=== PATIENT | female | born 1985 | race Hispanic/Latino ===

== ENCOUNTER 2019-10-27 08:36 | Outpatient (CLI) | payer OTHER ==
--- NOTE | 2019-10-27 10:25 | ULT ---
OB ULTRASOUND: HISTORY: anatomy. FINDINGS: A single live intrauterine gestation is seen with measurements corresponding to an estimated gestatio nal age of 20 weeks 0 days and an DARLENE of 03/15/2020. Estimated weight measures 324 g or 11 oz ( 35th percentile by Hadlock criteria). measurements are as follows: BPD: 4.57 cm (19 weeks 6 days) HC: 16.79 cm (19 weeks 4 days) AC: 15.06 cm (20 weeks 3 days) FL: 3.13 cm (19 weeks 6 days) heart rate measures 158 beats per minute. Placenta is anteriorly located without evidence of pl acenta previa. LUCY measures 14.3 cm. Three vessel cord, cord insertion, kidneys, bladder, stomach, four chambered heard, lateral arcadio tricles, cerebellum, spine, lips/nose and upper and lower extremities are visualized. No definite fet al anomalies are seen. Cervical length measures 3.5 cm. IMPRESSION: Single live intrauterine of 20 weeks' 0 days' estimated gestational age and estimated date of delivery of 03/15/2020. POS: ANTON
== END 2019-10-27 08:37 | disposition home or self-care (01) ==
LOC: BICULT 08:36
PROVIDERS: ATTEND Family Medicine
DX: O09.522 Supervision of elderly multigravida, second trimester (principal); Z3A.20 20 weeks gestation of pregnancy
CPT/HCPCS: 76805

== ENCOUNTER 2019-11-04 19:05 | Day surgery (SDC) | payer OTHER ==
[2019-11-04 19:46] VITALS: BP 144/74; TEMP 98.4; BMI 28.8
[2019-11-04] MEDS ORDERED: hydrALAZINE 20 MG/ML VIAL SLOW IVP PRN (19:53)
--- NOTE | 2019-11-04 20:23 | HP ---
TIME OF EVALUATION: 1940 hours to 1954 hours. LOCATION: Labor and Delivery Triage B. REASON FOR EVALUATION: Decreased movement at 21 weeks. This is a patient of Dr. Cox. HISTORY OF PRESENT ILLNESS: In brief, this is a 33-year-old G7, P5, SAB1 (2006) at 21 weeks and 1 day, here for decreased movement times "2 weeks." She denies leakage of fluid or vaginal bleeding or contractions. REVIEW OF SYSTEMS: Complete review of systems was checked and is otherwise negative unless specified in the HPI. PAST MEDICAL HISTORY: The patient states that she has had gestational diabetes history in the past and there is now some thought that she has pre-existing diabetes, but she is just on diet control at this time. ALLERGIES: NONE. PAST SURGICAL HISTORY: None. OB HISTORY: She has had vaginal deliveries and no C-sections. PHYSICAL EXAMINATION: Her blood pressure is 144/74, respirations are 18, pulse is 77, temperature is 98.4, O2 saturation is 100% on room air. On Doppler, the heart tones are in the 130s to 140s. After Doppler evaluation and about 20 minutes of observation, the patient states that she now feels the baby move. monitoring was not done as the patient is only 21 weeks. ASSESSMENT: This is a G7, P5, advanced maternal age patient at 33 years old, at 21 weeks with decreased movement, which is likely due to the gestational age. PLAN: 1. Reassurance given. 2. The patient's blood pressure is a little borderline, but based on the gestational age, this may represent chronic hypertension rather than -induced hypertension. For now, there is no intervention at this time, but I do recommend close outpatient followup. 3. No need for surveillance as she is only 21 weeks. 4. The patient is to follow up at the end of this week for continued blood pressure check and evaluation. Job ID: [id number]
== END 2019-11-04 20:25 | disposition home health service (06) ==
LOC: L&D/OP 19:05
PROVIDERS: ATTEND Family Medicine
DX: O36.8120 Decreased fetal movements, second trimester, not applicable or unspecified (principal); O09.522 Supervision of elderly multigravida, second trimester; Z3A.21 21 weeks gestation of pregnancy
CPT/HCPCS: 99282

== ENCOUNTER 2020-01-15 21:26 | Day surgery (SDC) | payer OTHER ==
[2020-01-15] MEDS ORDERED: hydrALAZINE 20 MG/ML VIAL SLOW IVP PRN (21:49)
--- NOTE | 2020-01-15 21:55 | PDOC.FPROB ---
FMR OB H&P: HPI - History of Present Illness Chief Complaint: Contractions Indentification: 34 year old at 31.4 wks History of Present Illness: 34 year old at 31.4 wks presents with contractions every 2-3 minutes for the last two hours. Patient states the pain is rated as a 3/10 but worsening in intensity. Patient states she had recent yeast infection and took pill today. She states that she has history of recurrent UTI's in for which she has had to take antibiotics and subsequently developed yeast infections. Additionally, patient has uncontrolled A2GDM on insulin. Patient states BG averages 150's. She did not have diabetes in previous pregnancies. Patient endorses good movement. She denies vaginal bleeding, vaginal discharge, LoF. 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 History: Denies history of STD's - Surgical History Sx History: Denies - Social History Social History: Denies alcohol, tobacco, or drug use FMR OB H&P: Medications - Current Home Medications: Medication Instructions Recorded Confirmed Type Fluconazole 01/15/20 History Insulin Aspart [Novolog Flexpen] 01/15/20 History Insulin Detemir [Levemir Flextouch] 01/15/20 History Fluconazole 150 mg PO ONE #1 tablet 01/16/20 Rx metroNIDAZOLE [Flagyl] 500 mg PO BID 7 Days #14 tab 01/16/20 Rx Allergies/Adverse Reactions: Allergies Allergy/AdvReac Type Severity Reaction Status Date / Time No Known Allergies Allergy Verified 01/15/20 22:11 FMR OB H&P: ROS - Review of Systems General: denies: fever/chills, weight/appetite/sleep changes Eyes: denies: vision changes, scotomas ENT: denies: nasal congestion, rhinorrhea, sore throat Cardiovascular: denies: chest pain, palpitation, edema Respiratory: denies: cough, congestion, shortness of breath Gastrointestinal: reports: abdominal pain. denies: nausea, vomiting Genitourinary (Female): reports: contractions. denies: dysuria, vaginal discharge, vaginal pain, vaginal bleeding Musculoskeletal: denies: pain, stiffness Neurologic: denies: numbness, syncope Integumentary: denies: itching, rash Psychological: denies: depression, anxiety FMR OB H&P: Vital Signs - Maternal Vital signs: BP 134/74 Pulse 85 Afebrile - Heart Tones Baseline: 130 Variability: moderate Acceleration: present Deceleration: absent [place] contractions every: q3-5, then q7-10 min FMR OB H&P: Physical Exam - Physical Exam General: NAD, awake, alert and oriented HEENT: MMM, grossly normal vision, grossly normal hearing Heart: RRR, pulses present General: CTAB, no respiratory distress Abdomen: soft, gravid, non-tender Musculoskeletal: pulses present, FROM in all four extremities Neurological: no tremor, no focal deficit Skin: no rash, capillary refill <2 seconds Lymphatic: no unusual bruising or bleeding, no purpura Psychiatric: intact recent and remote memory, good judgement and insight FMR OB H&P: A/P - Problem List (1) contractions Status: Acute Code(s): O47.9 - FALSE LABOR, UNSPECIFIED (2) GDM, class A2 Status: Acute Code(s): O24.419 - GESTATIONAL DIABETES MELLITUS IN , UNSP CONTROL Disposition: 34 year old at 31.4 wks contractions - q3-4 min contractions which spaced out during course of triage - Cat I strip - PO hydration - UA with 100 glucose and 20 ketones - VP3 positive for BV and michelle; GC/CT pending - FFN negative - SVE: closed/thick/high, posterior - Does not appear to be in PTL at this time - Sterile spec exam with copious amount of green, thick vaginal discharge Bacterial vaginosis - Noted on VP3 - Sent flagyl 500 mg BID x7 days to pharmacy Recurrent candidal vaginitis - Took PO fluconazole today - Will send 150 mg tablet of fluconazole to take in 72 hours - Advised to follow up with primary OB A2GDM - On insulin, uncontrolled per patient with average BG 150's fasting and PP - Patient needs to discuss titration of medication with primary OB Dispo: Patient not in PTL. D/c home with strict return precautions. Discussion: Date/Time: 01/15/20 6024 This H&P was discussed with Dr. Silvestre who agrees with the above documentation and plan. Signature: Valentina Nash, PGY-3 Addendum - Attending - Attending Attestation Date/Time: 01/16/20 0760 I personally evaluated the patient and discussed the management with Dr. Nash. I agree with the History, Examination, Assessment and Plan documented above.
[2020-01-15 22:10] VITALS: BP 134/74; TEMP 98; BMI 32.3
[2020-01-15 23:18] LABS: Bacteria/HPF None Seen HPF (None Seen); Bilirubin Negative (Negative); Blood, Urine Negative (Negative); Clarity Clear (Clear); Glucose, Urine (Dipstick) 100 mg/dL (Negative); Leukocyte Negative Leu/uL (Negative); Nitrite Negative (Negative); Protein, Urine (Dipstick) Negative (Neg-Trace); RBC/HPF 0-3 HPF (0-3); Squamous Epithelial 0-3 HPF (0-3); Urobilinogen Normal mg/dL (Less than 2); WBC/HPF 0-3 HPF (0-3)
[2020-01-15 23:20] LABS: Urine Culture Reflex No No
[2020-01-15 23:35] LABS: FFN Internal QC Analyzer PASS (PASS); Fetal Fibronectin Negative (Negative)
[2020-01-15 23:36] LABS: FFN Internal QC Cassette PASS (PASS)
[2020-01-17 23:03] LABS: Chlamydia by PCR Not Detected (NotDetected); GC by PCR Not Detected (NotDetected)
== END 2020-01-16 00:40 | disposition home or self-care (01) ==
LOC: L&D/OP 21:26
PROVIDERS: ATTEND Family Medicine
DX: O47.03 False labor before 37 completed weeks of gestation, third trimester (principal); O24.414 Gestational diabetes mellitus in pregnancy, insulin controlled; O23.593 Infection of other part of genital tract in pregnancy, third trimester; O98.813 Other maternal infectious and parasitic diseases complicating pregnancy, third trimester; B37.3 Candidiasis of vulva and vagina; Z3A.31 31 weeks gestation of pregnancy; Z79.4 Long term (current) use of insulin; Z79.899 Other long term (current) drug therapy
CPT/HCPCS: 51701; 81001; 82731; 87077; 87081; 87480; 87491; 87510; 87591; 87660; 99285

== ENCOUNTER 2020-01-28 14:32 | Outpatient (CLI) | payer OTHER ==
--- NOTE | 2020-01-28 15:19 | ULT ---
ULTRASOUND OBSTETRICAL COMPLETE: DATE: 01/28/2020 HISTORY: 34-year-old female with "O0 9.5-3, elderly multigravida in third trimester" " growth, LUCY, and umbilical artery Dopplers." FINDINGS: number: smith lie: Cephalic Maternal cervix: 4 cm. Closed. Placenta: Anterior right. No placenta previa. Amniotic fluid volume: LUCY = 13.5cm heart rate: 150 bpm anatomy not evaluated in detail biometry: Biparietal diameter (BPD): 8.5 cm 34 w 3 d Head circumference (HC): 31.1 cm 34 w 6 d Abdominal circumference (AC): 33.0 cm 37 w 0 d Femur length (FL): 6.7 cm 34 w 3 d Average ultrasound age (AUA): 35 w 2 d Estimated date of delivery (DARELNE): 03/01/2020 Estimated weight (EFW): 2756 g +/- 402 g Umbilical artery Doppler: At mid cord: Peak systolic velocity: 114 cm/s End diastolic velocity: 59 cm/s Resistive index: 0.48 S/D ratio: 1.9 At cord insertion: Peak systolic velocity: 149 cm/s End diastolic velocity: 65 cm/s Resistive index: 0.56 S/D ratio: 2.3 IMPRESSION: 1) Live 3rd trimester intrauterine gestation. 2) Estimated gestational age of 35 weeks, 2 days 3) cephalic lie. 4) 4 cm closed cervix. 5) umbilical artery Doppler values as above.
== END 2020-01-28 14:33 | disposition home or self-care (01) ==
LOC: BICULT 14:32
PROVIDERS: ATTEND Family Medicine
DX: O09.523 Supervision of elderly multigravida, third trimester (principal); Z3A.35 35 weeks gestation of pregnancy
CPT/HCPCS: 76815; 93975

== ENCOUNTER 2020-02-01 11:36 | Day surgery (SDC) | payer OTHER ==
[2020-02-01 12:30] VITALS: BMI 33.4
--- NOTE | 2020-02-01 13:34 | ULT ---
Obstetric sonogram limited Umbilical cord duplex exam Sonographic biophysical profile exam . HISTORY: Nonreactive nonstress test. FINDINGS: Single intrauterine gestation in cephalic presentation. Cervix is closed and 4.0 cm. Advanc ed age limits anatomic detail. Amniotic fluid index 14.8. Grade 3 placenta is anterior. Heart motion at 119 bpm. Good movement, tone, and breathing movements were demonstrated at sonography. Good color and spectral Doppler flow within the umbilical artery. Resistive index 0.56. Pulsatility i ndex 0.83. S/D ratio 2.3. IMPRESSION: Sonographic biophysical profile score 8/8. Normal umbilical Doppler exam.
== END 2020-02-01 14:05 | disposition home or self-care (01) ==
LOC: L&D/OP 11:36
PROVIDERS: ATTEND Family Medicine
DX: O47.9 False labor, unspecified (principal); Z3A.00 Weeks of gestation of pregnancy not specified
CPT/HCPCS: 36416; 59025; 76819; 93975; 99282

== ENCOUNTER 2020-02-14 18:00 | Inpatient (IN) | payer MEDICAID, OTHER, SELFPAY ==
[~2020-02-14 18:00] MED LIST: Bupivacaine HCl 0.5%/Epinephrine 1:200,000/PF 30 ml Vial ONE
[2020-02-14 19:15] VITALS: BMI 29.9
[2020-02-14] MEDS ORDERED: Lidocaine 1% (PF) 30 ML VIAL SC PRN (21:08)
[2020-02-14] MEDS ORDERED: Promethazine HCl 25 MG/ML VIAL IM PRN (21:08)
[2020-02-14] MEDS ORDERED: Ondansetron PF 4 MG/2 ML Vial IVP PRN (21:08)
[2020-02-14] MEDS ORDERED: Misoprostol 200 MCG TAB PR PRN (21:14)
[2020-02-14] MEDS ORDERED: Carboprost 250 MCG/ML AMP IM PRN (21:14)
[2020-02-14] MEDS ORDERED: Diphenoxylate HCl/Atropine Tablet PO PRN (21:14)
[2020-02-14] MEDS ORDERED: Ibuprofen 800 MG TAB PO PRN (21:14)
[2020-02-14] MEDS ORDERED: HYDROcodone/Acetaminophen 5/325 mg Tablet PO PRN (21:14)
[2020-02-14] MEDS ORDERED: Methylergonovine 0.2 MG/ML VIAL IM PRN (21:14)
[2020-02-14] MEDS ORDERED: Butorphanol Tartrate 1 MG/ML VIAL SLOW IVP PRN (21:14)
[2020-02-14] MEDS ORDERED: Penicillin G Potassium 5 MILL.UNITS in Sodium Chloride 0.9% 100 ML IVPB SCH (21:15)
[2020-02-14 22:16] LABS: Hemoglobin 10.5 g/dL (12.0-16.0); Mean Corpuscular Hemoglobin 21.5 pg (27.0-31.0); Mean Platelet Volume 11.6 fL (7.4-10.4); Platelet Count 323 thou/uL (130-400); White Blood Cell (WBC) Count 9.9 thou/uL (4.8-10.8)
[2020-02-14 22:55] LABS: Syphilis Antibody Nonreactive (Nonreactive); Syphilis Antibody Index 0.04 S/CO (<1.00 Non-Reactive)
[2020-02-14 23:24] LABS: HBSAg Index 0.22 S/CO (0-0.99); Hep B Surf Ag Non-Reactive S/CO (NonReactive)
[2020-02-14] MEDS: Lactated Ringer's 1,000 ML IV SCH (23:58)
[2020-02-15] MEDS: Penicillin G 2.5 MILL.units 2.5 MILL.UNITS in Premix Bag 1 BAG IVPB SCH ×5 (03:58→20:57)
[2020-02-15] MEDS: NS w/ Oxytocin 10 units 500 ML IV SCH ×2 (03:59→18:37)
[2020-02-15] MEDS ORDERED: NS w/ Oxytocin 10 units 500 ML IV SCH (04:00)
[2020-02-15] MEDS: hydrALAZINE 20 MG/ML VIAL SLOW IVP PRN ×2 (09:33→09:57)
[2020-02-15] MEDS: Acetaminophen 500 MG TAB PO PRN (09:46)
[2020-02-15] MEDS ORDERED: hydrALAZINE 20 MG/ML VIAL SLOW IVP SCH (10:15)
[2020-02-15] MEDS ORDERED: Magnesium Sulfate 20 gm/500 ml 20 GM/500 ML BAG ONE ×2 (12:01→20:46)
[2020-02-15] MEDS ORDERED: Fentanyl 4 mcg/Bup 0.1% Cadd 100 ML ONE (12:31)
[2020-02-15] MEDS ORDERED: Acetaminophen 325 MG TAB PO PRN (13:51)
[2020-02-15] MEDS ORDERED: Promethazine HCl 25 MG/ML VIAL IM PRN (13:51)
[2020-02-15] MEDS ORDERED: Naloxone HCl 0.4 mg/ml Vial IVP PRN ×2 (13:51)
[2020-02-15] MEDS ORDERED: EPHEDRINE 25 MG/5 ML SYRINGE SLOW IVP PRN (13:51)
[2020-02-15] MEDS ORDERED: Lactated Ringer's 500 ML IV PRN (13:51)
[2020-02-15] MEDS ORDERED: diphenhydrAMINE 50 MG/ML VIAL IVP PRN (13:51)
[2020-02-15] MEDS ORDERED: Communication Order-Pharmacy FS SCH (14:00)
[2020-02-15] MEDS: Fentanyl 4 mcg/Bupivacaine 0.1% Cassette 100 ML EPIDURAL SCH (20:57)
[2020-02-15] MEDS: Ondansetron PF 4 MG/2 ML Vial IVP PRN (21:44)
[2020-02-16] MEDS: Penicillin G 2.5 MILL.units 2.5 MILL.UNITS in Premix Bag 1 BAG IVPB SCH ×2 (01:00→01:13)
[2020-02-16] MEDS ORDERED: Ondansetron PF 4 MG/2 ML Vial ONE (02:28)
[2020-02-16] MEDS: Ondansetron PF 4 MG/2 ML Vial IVP PRN (02:30)
[2020-02-16] MEDS ORDERED: Fentanyl 4 mcg/Bup 0.1% Cadd 100 ML ONE (03:24)
[2020-02-16] MEDS: Fentanyl 4 mcg/Bupivacaine 0.1% Cassette 100 ML EPIDURAL SCH (03:30)
[2020-02-16] MEDS ORDERED: Tranexamic Acid 1,000 MG/10 ML VIAL ONE (03:45)
[2020-02-16] MEDS: Lactated Ringer's 1,000 ML IV SCH ×2 (03:50→19:11)
[2020-02-16] MEDS: NS / Oxytocin 40 units/1000ml 1,000 ML IV PRN ×2 (04:20→06:33)
[2020-02-16] MEDS: Acetaminophen 500 MG TAB PO PRN (05:16)
[2020-02-16] MEDS ORDERED: hydrALAZINE 20 MG/ML VIAL SLOW IVP PRN (05:58)
[2020-02-16] MEDS ORDERED: hydrALAZINE 20 MG/ML VIAL ONE (06:03)
[2020-02-16] MEDS ORDERED: Magnesium Sulfate 20 gm/500 ml 0 GM/0 ML BAG ONE (06:55)
[2020-02-16] MEDS ORDERED: Magnesium Sulfate 20 gm/500 ml 20 GM/500 ML BAG ONE (06:56)
[2020-02-16] MEDS ORDERED: Calcium Gluconate 4.6 MEQ in Sodium Chloride 0.9% 100 ML IVPB PRN (07:20)
[2020-02-16] MEDS ORDERED: HYDROcodone/Acetaminophen 5/325 mg Tablet PO PRN ×2 (07:20)
[2020-02-16] MEDS ORDERED: Milk Of Magnesia 30 ML UDCUP PO PRN (07:20)
[2020-02-16] MEDS ORDERED: Ondansetron PF 4 MG/2 ML Vial IVP PRN (07:20)
[2020-02-16] MEDS ORDERED: diphenhydrAMINE 25 MG CAP PO PRN (07:20)
[2020-02-16] MEDS ORDERED: Bisacodyl 10 MG SUPP PR PRN (07:20)
[2020-02-16] MEDS ORDERED: Calcium Gluc 4.6 MEQ/10 ML (100 MG/ML) SLOW IVP PRN (07:20)
[2020-02-16] MEDS ORDERED: Adacel (T-DAP) 0.5 ML SYRINGE IM ONE (07:20)
[2020-02-16] MEDS ORDERED: Magnesium Sulfate 20 gm/500 ml 20 GM/500 ML BAG IVPB SCH ×2 (07:20→07:30)
[2020-02-16] MEDS ORDERED: Benzocaine-Menthol 82.5 ML CAN TOP PRN (07:20)
[2020-02-16] MEDS ORDERED: Lanolin Ointment 7 GM TUBE TOP PRN (07:20)
[2020-02-16] MEDS ORDERED: NS / Oxytocin 40 units/1000ml 1,000 ML IV SCH (07:20)
[2020-02-16] MEDS: NIFEdipine XL 30 MG TAB PO SCH (09:55)
[2020-02-16] MEDS: Ibuprofen 800 MG TAB PO SCH ×2 (15:04→21:23)
[2020-02-16 17:30] LABS: Hemoglobin 9.9 g/dL (12.0-16.0); Mean Corpuscular HGB CONC 32.8 g/dL (32.0-36.0); Mean Corpuscular Hemoglobin 21.7 pg (27.0-31.0); Mean Corpuscular Volume 66.2 fL (78.0-98.0); Mean Platelet Volume 6.3 fL (7.4-10.4); Platelet Count 273 thou/uL (130-400); RBC Distribution Width 18.1 % (11.5-14.5); Red Blood Cell (RBC) Count 4.56 mill/uL (4.20-5.40); White Blood Cell (WBC) Count 11.8 thou/uL (4.8-10.8)
[2020-02-16] MEDS: Docusate Calcium (SURFAK) 240 MG CAP PO SCH (21:23)
[2020-02-17] MEDS: Ibuprofen 800 MG TAB PO SCH ×4 (02:05→21:02)
[2020-02-17] MEDS: Ferrous Sulfate 325 MG TAB PO SCH ×3 (02:06→16:03)
[2020-02-17] MEDS: Docusate Calcium (SURFAK) 240 MG CAP PO SCH ×3 (02:06→21:02)
[2020-02-17] MEDS: Prenatal Vitamin 1 TAB PO SCH ×2 (02:07→09:05)
[2020-02-17] MEDS: NIFEdipine XL 30 MG TAB PO SCH (09:05)
[2020-02-17] MEDS: metFORMIN 500 MG TAB PO SCH ×2 (09:06→17:37)
[2020-02-17] MEDS: Lactated Ringer's 1,000 ML IV SCH ×2 (10:14→17:46)
[2020-02-17] MEDS: Penicillin G 2.5 MILL.units 2.5 MILL.UNITS in Premix Bag 1 BAG IVPB SCH (10:14)
[2020-02-18] MEDS: Ibuprofen 800 MG TAB PO SCH ×2 (05:27→13:53)
[2020-02-18] MEDS: Ferrous Sulfate 325 MG TAB PO SCH (08:41)
[2020-02-18] MEDS: NIFEdipine XL 30 MG TAB PO SCH (08:41)
[2020-02-18] MEDS: Prenatal Vitamin 1 TAB PO SCH (08:41)
[2020-02-18] MEDS: Docusate Calcium (SURFAK) 240 MG CAP PO SCH (08:41)
[2020-02-18] MEDS: metFORMIN 500 MG TAB PO SCH (08:41)
[2020-02-18 11:45] VITALS: BP 132/63; TEMP 98
== END 2020-02-18 18:59 | disposition home or self-care (01) | DRG 805 ==
LOC: L&D 18:30 → 3SW 02-17 08:31
PROVIDERS: ADMIT Family Medicine; ATTEND Family Medicine
PROC: 10E0XZZ Delivery of Products of Conception, External Approach (ICD-10-PCS; principal; 2020-02-16)
PROC: 10907ZC Drainage of Amniotic Fluid, Therapeutic from Products of Conception, Via Natural or Artificial Opening (ICD-10-PCS; 2020-02-16)
PROC: 3E0P7VZ Introduction of Hormone into Female Reproductive, Via Natural or Artificial Opening (ICD-10-PCS; 2020-02-16)
PROC: 3E033VJ Introduction of Other Hormone into Peripheral Vein, Percutaneous Approach (ICD-10-PCS; 2020-02-16)
DX: O24.424 Gestational diabetes mellitus in childbirth, insulin controlled (principal); K83.1 Obstruction of bile duct; Z37.0 Single live birth; O26.62 Liver and biliary tract disorders in childbirth; O63.9 Long labor, unspecified; O99.824 Streptococcus B carrier state complicating childbirth; O13.4 Gestational [pregnancy-induced] hypertension without significant proteinuria, complicating childbirth; Z3A.36 36 weeks gestation of pregnancy; O75.89 Other specified complications of labor and delivery
CPT/HCPCS: 36415; 36416; 51702; 83735; 85027; 86780; 86850; 86900; 86901; 87340; J0360; J0670; J2405; J2540; J2590; J3475; J3490

== ENCOUNTER 2024-05-09 20:53 | Emergency (ER) | payer MEDICAID, SELFPAY ==
[2024-05-09] MEDS ORDERED: Azithromycin 250 MG TAB ONE (21:36)
[2024-05-09] MEDS ORDERED: Lidocaine 1% MPF 2 ML VIAL ONE (21:36)
[2024-05-09] MEDS ORDERED: cefTRIAXone (ROCEPHIN) 500 MG VIAL ONE (21:38)
[2024-05-09 21:48] LABS: Bacteria/HPF None Seen HPF (None Seen); Bilirubin Negative (Negative); Blood, Urine Trace (Negative); CAUTI Indications for Culture Dysuria,urgency,freq; Clarity Clear (Clear); Glucose, Urine (Dipstick) Normal (Negative); Ketone, Urine Negative (Negative); Leukocyte 75 Leu/uL (Negative); Nitrite Negative (Negative); Protein, Urine (Dipstick) 20 mg/dL (Neg-Trace); RBC/HPF 0-3 HPF (0-3); Specific Gravity, Urine 1.028 (1.002-1.036)
[2024-05-09 21:49] LABS: Urine Culture Reflex No No
[2024-05-11 04:30] LABS: Chlam.trachomatis by PCR,Urine Not Detected (NotDetected); GC N.gonorrhoeae PCR,UrineVOID DETECTED (NotDetected)
== END 2024-05-09 21:45 | disposition home or self-care (01) ==
LOC: ERS 20:53
DX: Z20.2 Contact with and (suspected) exposure to infections with a predominantly sexual mode of transmission (principal)
CPT/HCPCS: 81001; 87480; 87491; 87510; 87591; 87660; 96372; 99283; J0696